=== PATIENT | female | born 1960 | race Caucasian/White ===

== ENCOUNTER 2018-08-11 09:28 | Outpatient (CLI) | payer BC, SELFPAY ==
[2018-08-11 09:56] LABS: HCT 41.7 % (36.0-46.0); HGB 13.6 g/dL (12.0-15.5); Mean Corp. HGB Concentration 32.6 g/dL (32.0-36.0); Mean Corpuscular Hemoglobin 31.5 pg (27.0-33.0); Mean Corpuscular Volume 96.5 fL (80-95); Mean Platelet Volume 11.1 fL (8.0-11.0); Platelet Count 189 x1000/uL (130-400); RBC 4.32 m/cumm (4.00-5.20); RBC Distribution Width 12.3 % (11.7-14.6); White Blood Cell Count 8.09 k/cumm (4.4-10.8)
[2018-08-11 11:16] LABS: Vitamin B12 259 pg/mL (193-986)
[2018-08-11 11:32] LABS: Folate > 20.0 ng/mL (8.6-20.0)
[2018-08-14 08:07] LABS: Thiamine (Vitamin B1), WB 160 nmol/L (70-180)
== END 2018-08-11 09:48 ==
PROVIDERS: PCP Family Medicine; Visit Provider Family Medicine
DX: E53.8 Deficiency of other specified B group vitamins (principal)
CPT/HCPCS: 36415; 85027; 82607; 82746; 84425

== ENCOUNTER 2019-09-11 01:29 | Outpatient (CLI) | payer BC, SELFPAY ==
--- NOTE | 2019-09-11 15:26 | DI.MAMMO_ITS ---
EXAM: MAMMO SCREENING CLINICAL HISTORY: SCREENING Z12.39 TECHNIQUE: Mammograms were interpreted according to the usual protocol including computer analysis w [employer] CAD system, tomosynthesis and C-view imaging. COMPARISON: Current examination is compared with previous examinations including August 2017 FINDINGS: Breasts are extremely dense. No dominant mass or clumped microcalcification is seen. Current examin ation is compared with previous examinations including August 2017 and there has been no gross inter daniele change in appearance in comparison with the previous studies. IMPRESSION: No specific evidence of malignancy at this time. Routine screening examinations are suggested at year ly intervals due to the family history of breast carcinoma. Category 1, breast density category D. BI-RADS Cat 1 - Negative Breast Density - Category D - Extremely dense
== END 2019-09-11 01:49 ==
PROVIDERS: PCP Family Medicine; Visit Provider Family Medicine
DX: Z12.31 Encounter for screening mammogram for malignant neoplasm of breast (principal); Z80.3 Family history of malignant neoplasm of breast
CPT/HCPCS: 77063; 77067

== ENCOUNTER 2019-09-22 13:29 | Outpatient (CLI) | payer BC, SELFPAY ==
[2019-09-22 15:46] LABS: ALT 24 U/L (14-59); AST 20 U/L (15-37); Albumin 4.5 g/dL (3.4-5.0); Alkaline Phosphatase 71 U/L (46-116); BUN 12 mg/dL (7-18); Bilirubin, Total 0.4 mg/dL (0.2-1.0); CREATININE 0.69 mg/dL (0.55-1.02); Calcium 8.7 mg/dL (8.5-10.1); Chloride 104 mmol/L (98-107); FREE T4 1.06 ng/dL (0.76-1.46); Glucose 99 mg/dL (74-106); Potassium 4.1 mmol/L (3.5-5.1); Sodium 142 mmol/L (136-145); TSH 1.95 uIU/mL (0.36-3.74); Total Protein 7.3 g/dL (6.4-8.2)
[2019-09-22 15:57] LABS: Calculated LDL 108 mg/dL (<100); Cholesterol 208 mg/dL (<200); HDL Cholesterol 89 mg/dL (40-60); Triglyceride 57 mg/dL (<150)
[2019-09-22 23:04] LABS: T3, Total 120 ng/dL (97-169)
[2019-09-29 11:01] LABS: 25-Hydroxy D Total 31 ng/mL; 25-Hydroxy D2 <4.0 ng/mL; 25-Hydroxy D3 31 ng/mL
== END 2019-09-22 13:49 ==
PROVIDERS: PCP Family Medicine; Visit Provider Naturopath
DX: E55.9 Vitamin D deficiency, unspecified (principal); I10 Essential (primary) hypertension
CPT/HCPCS: 36415; 80053; 80061; 82306; 84439; 84443; 84480

== ENCOUNTER 2019-11-27 14:20 | Outpatient (REF) | payer BC, SELFPAY ==
[2019-11-27 20:58] LABS: HCT 41.9 % (36.0-46.0); HGB 13.7 g/dL (12.0-15.5); Mean Corp. HGB Concentration 32.7 g/dL (32.0-36.0); Mean Corpuscular Hemoglobin 30.9 pg (27.0-33.0); Mean Corpuscular Volume 94.4 fL (80-95); Mean Platelet Volume 12.9 fL (8.0-11.0); Platelet Count 200 x1000/uL (130-400); RBC 4.44 m/cumm (4.00-5.20); RBC Distribution Width 12.6 % (11.7-14.6); White Blood Cell Count 6.18 k/cumm (4.4-10.8)
[2019-11-27 21:32] LABS: ALT 34 U/L (14-59); AST 30 U/L (15-37); Albumin 4.2 g/dL (3.4-5.0); Alkaline Phosphatase 71 U/L (46-116); Anion Gap 8.6 mmol/L (3-11); BUN 12 mg/dL (7-18); Bilirubin, Total 0.6 mg/dL (0.2-1.0); CO2 30.4 mmol/L (21.0-32.0); CREATININE 0.71 mg/dL (0.55-1.02); Calcium 8.9 mg/dL (8.5-10.1); Chloride 102 mmol/L (98-107); Glucose 94 mg/dL (74-106); Potassium 3.7 mmol/L (3.5-5.1); Sodium 141 mmol/L (136-145); Total Protein 7.1 g/dL (6.4-8.2)
[2019-11-27 21:48] LABS: ESR 9 mm/hr (0-30); Vitamin B12 > 2000 pg/mL (193-986)
== END 2019-11-27 14:40 ==
LOC: NCHCN 14:20
PROVIDERS: PCP Family Medicine; Visit Provider Family Medicine
DX: D64.9 Anemia, unspecified (principal); R53.83 Other fatigue; E53.8 Deficiency of other specified B group vitamins
CPT/HCPCS: 80053; 85027; 85652; 82607

== ENCOUNTER 2020-02-15 02:13 | Outpatient (CLI) | payer BC, SELFPAY ==
[2020-02-15 12:26] LABS: Folate 16.5 ng/mL (8.6-20.0); Vitamin B12 845 pg/mL (193-986)
[2020-02-17 15:38] LABS: Pyridoxal 5-Phosphate (PLP), P 11 mcg/L (5-50)
[2020-02-19 11:29] LABS: Thiamine (Vitamin B1), WB 153 nmol/L (70-180)
[2020-02-19 22:43] LABS: Riboflavin (Vitamin B2), P 6 mcg/L (1-19)
[2020-02-22 14:40] LABS: Niacin (Vitamin B3), Plasma 2.66 ug/mL
[2020-02-23 16:04] LABS: Pantothenic Acid (VitB5), S 88.41 ug/L
== END 2020-02-15 02:33 ==
PROVIDERS: PCP Family Medicine; Visit Provider Family Medicine
DX: R53.83 Other fatigue (principal)
CPT/HCPCS: 36415; 84252; 84591; 82607; 82746; 84207; 84425

== ENCOUNTER 2020-02-29 21:51 | Outpatient (REF) | payer BC, SELFPAY ==
[2020-02-29 20:57] LABS: Hemoglobin A1C 5.4 % (3.8-5.6)
== END 2020-02-29 22:11 ==
LOC: NCHCN 21:51
PROVIDERS: PCP Family Medicine; Visit Provider Family Medicine
DX: K90.49 Malabsorption due to intolerance, not elsewhere classified (principal)
CPT/HCPCS: 83036

== ENCOUNTER 2020-04-15 03:02 | Outpatient (CLI) | payer BC, SELFPAY ==
[2020-04-15 14:08] LABS: Abs Immature Grans 0.02 10^3/uL (0.0-0.06); Absolute Basophil Count 0.03 10^3/uL (0.0-0.2); Absolute Eosinophil Count 0.03 10^3/uL (0.0-0.7); Absolute Lymphocyte Count 1.79 10^3/uL (1.2-3.4); Absolute Monocyte Count 0.52 10^3/uL (0.1-0.8); Absolute Neutrophil Count 5.44 10^3/uL (1.2-6.7); Basophils % 0.4; Eosinophils % 0.4; HCT 42.4 % (36.0-46.0); HGB 13.8 g/dL (11.2-15.7); Immature Grans % 0.3; Lymphocytes % 22.9; MCH 30.7 pg (27.0-33.0); MCHC 32.5 % (32.0-36.0); MCV 94.4 fL (80-95); MPV 12.2 fL (8.0-11.0); Monocytes % 6.6; Neutrophils % 69.4; Nucleated RBC 0 %; Platelet Count 219 10^3/uL (130-400); RBC 4.49 10^6/uL (3.93-5.22); RDW-SD 41.7 fL; WBC 7.83 10^3/uL (4.4-10.8)
[2020-04-15 14:44] LABS: Iron 92 ug/dL (50-170); Total Iron Binding Capacity 395 ug/dL (250-450); Transferrin Sat 23 % (15-50)
[2020-04-15 14:50] LABS: Hemoglobin A1C 5.3 % (<5.7)
[2020-04-15 14:55] LABS: ESR 16 mm/hr (0-30)
[2020-04-15 15:21] LABS: Creatine Kinase 185 U/L (26-192); FREE T4 0.97 ng/dL (0.76-1.46)
[2020-04-15 15:27] LABS: ALT 28 U/L (14-59); AST 19 U/L (15-37); Albumin 4.3 g/dL (3.4-5.0); Alkaline Phosphatase 70 U/L (46-116); Anion Gap 8.8 mmol/L (3-11); BUN 11 mg/dL (7-18); Bilirubin, Total 0.5 mg/dL (0.2-1.0); CO2 28.2 mmol/L (21.0-32.0); CREATININE 0.69 mg/dL (0.55-1.02); Calcium 8.8 mg/dL (8.5-10.1); Chloride 105 mmol/L (98-107); Ferritin 56 ng/mL (8-252); Folate 14.4 ng/mL (8.6-20.0); Glucose 92 mg/dL (74-106); Sodium 142 mmol/L (136-145); TSH 1.85 uIU/mL (0.36-3.74); Total Protein 7.4 g/dL (6.4-8.2); Vitamin B12 1631 pg/mL (193-986)
[2020-04-15 22:07] LABS: Rheumatoid Factor <8.6 IU/mL (<12.0)
[2020-04-15 22:24] LABS: T3,Free 3.6 pg/mL (2.8-5.3)
[2020-04-18 05:57] LABS: Vitamin D 25 Total 27.3 ng/ml (30-100)
[2020-04-18 11:51] LABS: Syphilis Serology (RPR) Negative (Negative)
[2020-04-18 14:12] LABS: HCV RNA Qualitative Undetected (Undetected)
[2020-04-18 14:43] LABS: ANA Interpretation Negative (Negative)
== END 2020-04-15 03:22 ==
PROVIDERS: PCP Family Medicine; Visit Provider Physical Medicine & Rehabilitation
DX: R53.83 Other fatigue (principal); E55.9 Vitamin D deficiency, unspecified; M79.10 Myalgia, unspecified site; G47.9 Sleep disorder, unspecified; M89.9 Disorder of bone, unspecified; E74.39 Other disorders of intestinal carbohydrate absorption
CPT/HCPCS: 36415; 80053; 82306; 82550; 85652; 87522; 82607; 82728; 82746; 83036; 83540; 83550; 83735; 84439; 84443; 84481; 85025; 86038; 86431; 86592

== ENCOUNTER 2021-04-25 17:45 | Outpatient (REF) | payer BC, SELFPAY ==
[2021-04-27 20:00] LABS: COVID-19 RT-PCR UVMMC Result Negative (Negative)
== END 2021-04-25 17:46 | disposition home or self-care (01) ==
LOC: NCHCN 17:45
PROVIDERS: PCP Family Medicine; Visit Provider Family Medicine
DX: Z20.822 Contact with and (suspected) exposure to COVID-19 (principal)
CPT/HCPCS: U0003

== ENCOUNTER 2021-08-14 02:50 | Outpatient (CLI) | payer BC, SELFPAY ==
[2021-08-14 14:21] LABS: Abs Immature Grans 0.03 10^3/uL (0.0-0.06); Absolute Basophil Count 0.03 10^3/uL (0.0-0.2); Absolute Eosinophil Count 0.06 10^3/uL (0.0-0.7); Absolute Lymphocyte Count 1.84 10^3/uL (1.2-3.4); Absolute Monocyte Count 0.47 10^3/uL (0.1-0.8); Absolute Neutrophil Count 5.77 10^3/uL (1.2-6.7); Basophils % 0.4; Eosinophils % 0.7; HCT 40.8 % (36.0-46.0); HGB 13.2 g/dL (11.2-15.7); Immature Grans % 0.4; Lymphocytes % 22.4; MCH 31.1 pg (27.0-33.0); MCHC 32.4 % (32.0-36.0); MCV 96.2 fL (80-95); MPV 10.7 fL (8.0-11.0); Monocytes % 5.7; Neutrophils % 70.4; Nucleated RBC 0 %; Platelet Count 253 10^3/uL (130-400); RBC 4.24 10^6/uL (3.93-5.22); RDW 12.4 % (11.7-14.6); RDW-SD 43.8 fL
[2021-08-14 15:18] LABS: ALT 30 U/L (14-59); AST 25 U/L (15-37); Albumin 3.7 g/dL (3.4-5.0); Alkaline Phosphatase 65 U/L (46-116); BUN 9 mg/dL (7-18); Bilirubin, Total 0.5 mg/dL (0.2-1.0); C-Reactive Protein 0.21 mg/dL (0.0-0.3); CREATININE 0.6 mg/dL (0.55-1.02); Calcium 8.7 mg/dL (8.5-10.1); Chloride 104 mmol/L (98-107); Glucose 110 mg/dL (74-106); Magnesium 2.2 mg/dL (1.8-2.4); Potassium 3.5 mmol/L (3.5-5.1); Sodium 144 mmol/L (136-145); Total Protein 6.5 g/dL (6.4-8.2); Vitamin B12 673 pg/mL (193-986)
[2021-08-16 11:32] LABS: Thiamine (Vitamin B1), WB 114 nmol/L (70-180)
== END 2021-08-14 02:51 | disposition home or self-care (01) ==
PROVIDERS: PCP Family Medicine; Visit Provider Family Medicine
DX: I10 Essential (primary) hypertension (principal); D64.9 Anemia, unspecified; R73.03 Prediabetes; E53.8 Deficiency of other specified B group vitamins
CPT/HCPCS: 36415; 80053; 82306; 82607; 83735; 84425; 84443; 85025; 86140

== ENCOUNTER 2021-10-16 16:52 | Outpatient (REF) | payer BC, SELFPAY ==
[2021-10-17 09:30] LABS: Abs Immature Grans 0.03 10^3/uL (0.0-0.06); Absolute Basophil Count 0.02 10^3/uL (0.0-0.2); Absolute Eosinophil Count 0.04 10^3/uL (0.0-0.7); Absolute Monocyte Count 0.66 10^3/uL (0.1-0.8); Absolute Neutrophil Count 9.12 10^3/uL (1.2-6.7); Basophils % 0.2; Eosinophils % 0.3; HCT 43.9 % (36.0-46.0); Immature Grans % 0.3; Lymphocytes % 17.5; MCH 30.8 pg (27.0-33.0); MCHC 31.9 % (32.0-36.0); MCV 96.7 fL (80-95); MPV 12.5 fL (8.0-11.0); Monocytes % 5.5; Neutrophils % 76.2; Nucleated RBC 0 %; Platelet Count 246 10^3/uL (130-400); RBC 4.54 10^6/uL (3.93-5.22); RDW 12.7 % (11.7-14.6); WBC 11.97 10^3/uL (4.4-10.8)
[2021-10-17 09:31] LABS: Absolute Lymphocyte Count 2.09 10^3/uL (1.2-3.4)
[2021-10-17 09:33] LABS: ESR 10 mm/hr (0-30)
== END 2021-10-16 16:53 | disposition home or self-care (01) ==
LOC: NCHCN 16:52
PROVIDERS: PCP Family Medicine; Visit Provider Family Medicine
DX: D64.9 Anemia, unspecified (principal); A69.20 Lyme disease, unspecified
CPT/HCPCS: 85652; 85025

== ENCOUNTER 2021-12-06 19:34 | Outpatient (REF) | payer BC, SELFPAY ==
[2021-12-06 20:38] LABS: Abs Immature Grans 0.02 10^3/uL (0.0-0.06); Absolute Basophil Count 0.03 10^3/uL (0.0-0.2); Absolute Eosinophil Count 0.06 10^3/uL (0.0-0.7); Absolute Lymphocyte Count 1.99 10^3/uL (1.2-3.4); Absolute Neutrophil Count 5.28 10^3/uL (1.2-6.7); Basophils % 0.4; Eosinophils % 0.8; HCT 42.9 % (36.0-46.0); Immature Grans % 0.3; Lymphocytes % 25.3; MCH 30.6 pg (27.0-33.0); MCHC 32.6 % (32.0-36.0); MCV 93.9 fL (80-95); MPV 11.4 fL (8.0-11.0); Monocytes % 6.3; Neutrophils % 66.9; Platelet Count 239 10^3/uL (130-400); RBC 4.57 10^6/uL (3.93-5.22); RDW 12.3 % (11.7-14.6); RDW-SD 42.5 fL; WBC 7.88 10^3/uL (4.4-10.8)
== END 2021-12-06 19:35 | disposition home or self-care (01) ==
LOC: NCHCN 19:34
PROVIDERS: PCP Family Medicine; Visit Provider Family Medicine
DX: R10.9 Unspecified abdominal pain (principal)
CPT/HCPCS: 85025

== ENCOUNTER 2021-12-12 00:35 | Outpatient (CLI) | payer BC, SELFPAY ==
--- NOTE | 2021-12-12 10:00 | DI.MAMMO_ITS ---
Exam(s) MAMMO SCREENING EXAM: MAMMO SCREENING CLINICAL HISTORY: SCREENING, Z12.39. TECHNIQUE: Bilateral full field digital CC and MLO mammographic images were obtained with 3D tomosyn thesis and utilizing computer aided detection (CAD). COMPARISON: Prior mammograms were reviewed, the most recent being August 2019. FINDINGS: The fibroglandular tissue pattern is again noted extremely dense. There are no CAD designations. There are no obvious new spiculated masses nor malignant appearing microcalcification groups. There is no significant architectural distortion nor skin thickening-retraction. IMPRESSION: No radiographic evidence of malignancy. Very dense bilateral fibroglandular tissue BI-RADS Category 1 - Negative Breast Density - Category D - Extremely dense Breast density Category C or D implies that the patient has dense breast tissue. Dense breast tissue can make it harder to find cancer on a mammogram. Dense breast tissue is also associated with an incr eased risk of breast cancer. This information about the result of the mammogram report was provided to the patient to raise their awareness. Use this report when you speak with the patient about their risks for breast cancer, which includes their family history. At that time, you may recommend additional screening tests (Ultrasoun d or MRI) as these tests may add significant information. A negative radiographic report should not delay biopsy if a dominant or clinically suspicious mass is present. Up to ten percent of cancers are not identified on mammography. A negative report may reinforce clinical impression. Adenosis and dense breasts may obscure an underlying neoplasm. False positive reports average 6 to 10%. Patient will receive a letter notifying them of these results.
== END 2021-12-12 00:55 ==
PROVIDERS: PCP Family Medicine; Visit Provider Family Medicine
DX: Z12.31 Encounter for screening mammogram for malignant neoplasm of breast (principal)
CPT/HCPCS: 77063; 77067

== ENCOUNTER 2022-04-27 18:47 | Outpatient (REF) | payer BC, SELFPAY ==
[2022-04-30 11:30] LABS: Lyme Ab w Rflx to Lyme Confirm Negative (Negative)
[2022-05-01 20:07] LABS: Anaplasma phagocytophilum Negative (Negative); B. miyamotoi PCR Negative (Negative); Babesia divergens/MO-1 Negative (Negative); Babesia duncani Negative (Negative); Babesia microti Negative (Negative); Ehrlichia chaffeensis Negative (Negative); Ehrlichia ewingii/canis Negative (Negative); Ehrlichia muris eauclairensis Negative (Negative)
== END 2022-04-27 18:48 | disposition home or self-care (01) ==
LOC: NCHCN 18:47
PROVIDERS: PCP Family Medicine; Visit Provider Family Medicine
DX: Z86.19 Personal history of other infectious and parasitic diseases (principal)
CPT/HCPCS: 87798; 86618

== ENCOUNTER 2022-11-11 08:24 | Outpatient (REF) | payer BC, SELFPAY ==
[2022-11-14 18:37] LABS: Calprotectin 88.2 mcg/g
== END 2022-11-11 08:25 | disposition home or self-care (01) ==
LOC: LBN 08:24
PROVIDERS: PCP Family Medicine; Visit Provider Physician Assistant Medical
DX: R19.4 Change in bowel habit (principal)
CPT/HCPCS: 83993

== ENCOUNTER 2023-05-29 13:18 | Outpatient (REF) | payer BC, SELFPAY ==
[2023-05-29 21:07] LABS: Abs Immature Grans 0.02 10^3/uL (0.0-0.06); Absolute Basophil Count 0.04 10^3/uL (0.0-0.2); Absolute Eosinophil Count 0.05 10^3/uL (0.0-0.7); Absolute Neutrophil Count 6.03 10^3/uL (1.2-6.7); Basophils % 0.4; Eosinophils % 0.5; HCT 46.8 % (36.0-46.0); HGB 15.1 g/dL (11.2-15.7); Immature Grans % 0.2; Lymphocytes % 27.4; MCH 30.5 pg (27.0-33.0); MCHC 32.3 % (32.0-36.0); MCV 95 fL (80-95); MPV 11.7 fL (8.0-11.0); Monocytes % 5.5; Platelet Count 280 10^3/uL (130-400); RBC 4.95 10^6/uL (3.93-5.22); RDW-SD 41.7 fL; WBC 9.14 10^3/uL (4.4-10.8)
[2023-05-29 21:25] LABS: ALT 26 U/L (14-59); AST 20 U/L (15-37); Albumin 4.2 g/dL (3.4-5.0); Alkaline Phosphatase 90 U/L (46-116); Anion Gap 8.7 mmol/L (3-11); BUN 11 mg/dL (7-18); Bilirubin, Total 0.5 mg/dL (0.2-1.0); CO2 27.3 mmol/L (21.0-32.0); CREATININE 0.6 mg/dL (0.55-1.02); Calcium 9.4 mg/dL (8.5-10.1); Chloride 104 mmol/L (98-107); Estimated GFR 100.17 (mL/min/1.73m2); Glucose 115 mg/dL (74-106); Potassium 4.6 mmol/L (3.5-5.1); Sodium 140 mmol/L (136-145); TSH (W/Ref FT4) 2.58 uIU/mL (0.36-3.74); Total Protein 7.5 g/dL (6.4-8.2)
== END 2023-05-29 13:19 | disposition home or self-care (01) ==
LOC: NCHCN 13:18
PROVIDERS: PCP Family Medicine; Visit Provider Family Medicine
DX: R53.83 Other fatigue (principal)
CPT/HCPCS: 80053; 84443; 85025

== ENCOUNTER 2023-07-16 18:22 | Outpatient (REF) | payer MEDICARE, SELFPAY ==
[2023-07-16 20:50] LABS: ALT 27 U/L (14-59); AST 24 U/L (15-37); Albumin 3.8 g/dL (3.4-5.0); Alkaline Phosphatase 60 U/L (46-116); Anion Gap 7.1 mmol/L (3-11); BUN 9 mg/dL (7-18); Bilirubin, Total 0.5 mg/dL (0.2-1.0); CO2 27.9 mmol/L (21.0-32.0); CREATININE 0.7 mg/dL (0.55-1.02); Calcium 8.8 mg/dL (8.5-10.1); Chloride 108 mmol/L (98-107); Estimated GFR 96.52 (mL/min/1.73m2); Glucose 96 mg/dL (74-106); Magnesium 2.1 mg/dL (1.8-2.4); Potassium 3.9 mmol/L (3.5-5.1); Sodium 143 mmol/L (136-145)
== END 2023-07-16 18:23 | disposition home or self-care (01) ==
LOC: NCHCN 18:22
PROVIDERS: PCP Family Medicine; Visit Provider Family Medicine
DX: I10 Essential (primary) hypertension (principal)
CPT/HCPCS: 80053; 83735

== ENCOUNTER 2023-10-24 14:29 | Outpatient (REF) | payer MEDICARE, SELFPAY ==
[2023-10-24 16:55] LABS: Vitamin D 25 Total 6.2 ng/mL (30-100)
[2023-10-24 16:58] LABS: HCT 43.6 % (36.0-46.0); HGB 14.4 g/dL (11.2-15.7); MCH 31.3 pg (27.0-33.0); MCV 95 fL (80-95); MPV 12.4 fL (8.0-11.0); Platelet Count 232 10^3/uL (130-400); RDW 12.2 % (11.7-14.6); RDW-SD 42.3 fL; WBC 5.91 10^3/uL (4.4-10.8)
[2023-10-24 17:13] LABS: ALT 27 U/L (14-59); AST 20 U/L (15-37); Alkaline Phosphatase 76 U/L (46-116); Anion Gap 11.5 mmol/L (3-11); BUN 12 mg/dL (7-18); Bilirubin, Total 0.5 mg/dL (0.2-1.0); CO2 26.5 mmol/L (21.0-32.0); CREATININE 0.6 mg/dL (0.55-1.02); Calcium 8.8 mg/dL (8.5-10.1); Calculated LDL 125 mg/dL (<100); Chloride 104 mmol/L (98-107); Cholesterol 213 mg/dL (<200); Estimated GFR 99.55 (mL/min/1.73m2); Glucose 111 mg/dL (74-106); HDL Cholesterol 78 mg/dL (40-60); Magnesium 2.1 mg/dL (1.8-2.4); Potassium 4.4 mmol/L (3.5-5.1); Sodium 142 mmol/L (136-145); Triglyceride 52 mg/dL (<150)
[2023-10-24 17:18] LABS: GGT 28 U/L (5-55)
[2023-10-24 21:57] LABS: CRP, High Sensitivity <0.34 mg/L (See Note)
== END 2023-10-24 14:30 | disposition home or self-care (01) ==
LOC: NCHCN 14:29
PROVIDERS: PCP Family Medicine; Visit Provider Family Medicine
DX: I10 Essential (primary) hypertension (principal); F10.10 Alcohol abuse, uncomplicated; M85.80 Other specified disorders of bone density and structure, unspecified site
CPT/HCPCS: 80053; 80061; 82306; 85027; 86141; 82977; 83735

== ENCOUNTER 2023-11-14 12:05 | Outpatient (REF) | payer MEDICARE, SELFPAY ==
--- NOTE | 2023-11-14 11:15 | SKI_PTH ---
PATIENT: Krystina Peter LOC: [facility] U#:[id number] AGE/SX: 63/F ROOM: RE11/14/[address]: Kristen Vazquez : 1960 BED: DIS: 11/14/2023 SPEC #: [id number] RECD: 11/14/23 17:33 STATUS: TAMMI REAdamaris #: [id number] SUNNY: 11/14/23 11:[address]: Kristen Vazquez DEPT: Surgical Specimen RECD BY: Saadai Hernandez ENTERED: 11/14/23 17:34 SP TYPE: ERICH MICHELLE DR: Jennyfer Dave Tissues: 1 - SKIN BIOPSY(SHAVE/PUNCH) Procedures: SKIN LEVEL 4 Comments: [id number]
== END 2023-11-14 12:06 | disposition home or self-care (01) ==
LOC: LBN 12:05
PROVIDERS: PCP Family Medicine; Visit Provider Registered Nurse Maternal Newborn
DX: L82.1 Other seborrheic keratosis
CPT/HCPCS: 88305

== ENCOUNTER → 2023-12-16 01:39 | Outpatient (CLI) | payer MEDICARE, SELFPAY ==
--- NOTE | 2023-12-16 15:18 | DI.MAMMO_ITS ---
Exam(s) MAMMO SCREENING EXAM: MAMMO SCREENING CLINICAL HISTORY: Z12.31 Encounter for screening mammogram for malignant neoplasm of breast. TECHNIQUE: Bilateral full field digital CC and MLO mammographic images were obtained with 3D tomosyn thesis and utilizing computer aided detection (CAD). COMPARISON: 2014 through 2021 FINDINGS: Masses: None seen in the left breast. Asymmetric areas of nodularity noted in the superior right matti ast on the MLO view posteriorly. Spot compression views and ultrasound are requested for further kailash luation. Architectural Distortion: None seen in either breast. Microcalcifications: No suspicious pleomorphic-type are seen in either breast. Skin Thickening/Nipple Retraction: None. IMPRESSION: 1. Left breast: No significant interval change with no specific features of malignancy noted. 2. Right breast: Areas of asymmetric nodularity seen in the superior right breast. Spot compression v iews and ultrasound requested for further evaluation. BI-RADS Category 0 - Assessment Incomplete: Need additional imaging evaluation Breast Density - Category D - extremely dense Breast Density Category D: The mammogram demonstrates the patient's breast tissue is dense. Dense matti ast tissue is very common and is not abnormal but dense breast tissue can make it harder to find canc er on a mammogram. Also, dense breast tissue may increase their breast cancer risk. This information about the result of the mammogram report was provided to the patient to raise their awareness. Use th is report when you speak with the patient about their risks for breast cancer, which includes their f amily history. At that time, you may recommend for more screening tests (Ultrasound or MRI) as they m ight be useful based on their risk. A negative radiographic report should not delay biopsy if a dominant or clinically suspicious mass is present. Up to ten percent of cancers are not identified on mammography. A negative report may reinforce clinical impression. Adenosis and dense breasts may obscure an underlying neoplasm. False positive reports average 6 to 10%.
== END ==
PROVIDERS: PCP Family Medicine; Visit Provider Family Medicine
DX: Z12.31 Encounter for screening mammogram for malignant neoplasm of breast (principal); R92.8 Other abnormal and inconclusive findings on diagnostic imaging of breast
CPT/HCPCS: 77063; 77067

== ENCOUNTER → 2023-12-18 02:20 | Outpatient (CLI) | payer MEDICARE, SELFPAY ==
--- NOTE | 2023-12-18 | DI.MAMMO_ITS ---
Exam(s) MG MAMMO SCREEN CALL BACK UNI US BREAST RT LIMITED EXAM: MG MAMMO SCREEN CALL BACK UNI CLINICAL HISTORY: R92.8 FU RT breast mammo, asymmetric nodularity. TECHNIQUE: Craniocaudal and mediolateral oblique spot compression digital Mammography views of the breast followed by Tomosynthesis and breast ultrasound. COMPARISON: MG Screening Bilat Mammo from 04/20/2015 MG Screening Bilat Mammo from 09/06/2017 MG MG MAMMO SCREENING from 09/11/2019 MG MG MAMMO SCREENING from 12/12/2021 MG MG MAMMO SCREENING from 12/16/2023 FINDINGS: Mammography/Tomosynthesis: Masses/Architectural Distortion: None seen. Microcalcifictions: No suspicious pleomorphic-type are seen. Skin Thickening/Nipple Retraction: None. Right breast US: Echotexture: Normal appearance of the glandular tissue. Shadowing: No suspicious foci. Cyst: None. Solid lesions: None seen. Ductal dilation: None. IMPRESSION: 1. No evidence of malignancy is noted. 2. Unless there is more urgent need, follow-up screening mammography is recommended, as per [place] [employer] guidelines. 3. The findings were discussed with the patient on the date of the examination. BI-RADS Category 1 - Negative Breast Density - Category D - Extremely dense A mammogram that demonstrates density of C or D indicates the patient's breast tissue is dense. Dense breast tissue is very common and is not abnormal, but dense breast tissue can make it harder to find cancer on a mammogram. Also, dense breast tissue may increase their breast cancer risk. This informa tion about the result of the mammogram report was provided to the patient to raise their awareness. U se this report when you speak with the patient about their risks for breast cancer, which includes th eir family history. At that time, you may recommend for more screening tests (Ultrasound or MRI) as t hey might be useful based on their risk. A negative radiographic report should not delay biopsy if a dominant or clinically suspicious mass is present. Up to ten percent of cancers are not identified on mammography. A negative report may reinforce clinical impression. Adenosis and dense breasts may obscure an underlying neoplasm. False positive reports average 6 to 10%. Patient will receive a letter notifying them of these results.
== END ==
PROVIDERS: PCP Family Medicine; Visit Provider Family Medicine
DX: R92.8 Other abnormal and inconclusive findings on diagnostic imaging of breast (principal); Z12.31 Encounter for screening mammogram for malignant neoplasm of breast
CPT/HCPCS: 76642; 77063; 77067

== ENCOUNTER 2024-01-15 09:22 | Outpatient (REF) | payer MEDICARE, SELFPAY ==
--- NOTE | 2024-01-15 08:30 | SKI_PTH ---
PATIENT: Krystina Peter LOC: [facility] U#:[id number] AGE/SX: 63/F ROOM: RE01/15/[address]: Srinath Dominguez MD : 1960 BED: DIS: 01/15/2024 SPEC #: [id number] RECD: 01/15/24 17:43 STATUS: TAMMI REQ #: [id number] SUNNY: 01/15/24 08:[address]: Srinath Dominguez DEPT: Surgical Specimen RECD BY: Saadia Hernandez ENTERED: 01/15/24 17:44 SP TYPE: ERICH MICHELLE DR: Jennyfer Dave Tissues: 1 - SKIN BIOPSY(SHAVE/PUNCH) Procedures: SKIN LEVEL 4 Comments: [id number]
== END 2024-01-15 09:23 | disposition home or self-care (01) ==
LOC: LBN 09:22
PROVIDERS: PCP Family Medicine; Visit Provider Otolaryngology
DX: L98.9 Disorder of the skin and subcutaneous tissue, unspecified (principal); L82.0 Inflamed seborrheic keratosis
CPT/HCPCS: 88305

== ENCOUNTER 2024-04-28 02:40 | Outpatient (CLI) | payer MEDICARE, SELFPAY ==
[2024-04-28 13:08] LABS: HCT 42.4 % (36.0-46.0); HGB 14.2 g/dL (11.2-15.7); MCH 31.4 pg (27.0-33.0); MCHC 33.5 % (32.0-36.0); MCV 94 fL (80-95); MPV 10.7 fL (8.0-11.0); Platelet Count 238 10^3/uL (130-400); RBC 4.52 10^6/uL (3.93-5.22); RDW 12.1 % (11.7-14.6); RDW-SD 42.1 fL; WBC 8.04 10^3/uL (4.4-10.8)
[2024-04-28 14:46] LABS: ALT 23 U/L (14-59); AST 21 U/L (15-37); Albumin 3.9 g/dL (3.4-5.0); Alkaline Phosphatase 68 U/L (46-116); Anion Gap 6.8 mmol/L (3-11); BUN 11 mg/dL (7-18); Bilirubin, Total 0.43 mg/dL (0.2-1.0); CO2 29.2 mmol/L (21.0-32.0); CREATININE 0.7 mg/dL (0.55-1.02); Calcium 9.4 mg/dL (8.5-10.1); Chloride 106 mmol/L (98-107); Estimated GFR 95.92 (mL/min/1.73m2); Glucose 130 mg/dL (74-106); Potassium 4.1 mmol/L (3.5-5.1); Sodium 142 mmol/L (136-145); TSH 4.28 uIU/Ml (0.36-3.74); Total Protein 7.2 g/dL (6.4-8.2)
[2024-04-28 15:22] LABS: Vitamin B12 255 pg/mL (193-986)
[2024-05-01 23:42] LABS: Thiamine (Vitamin B1), WB 142 nmol/L (70-180)
== END 2024-04-28 02:41 | disposition home or self-care (01) ==
LOC: LBO 02:40
PROVIDERS: PCP Family Medicine; Visit Provider Family Medicine
DX: R53.83 Other fatigue (principal); E53.9 Vitamin B deficiency, unspecified
CPT/HCPCS: 36415; 80053; 85027; 82607; 84425; 84443

== ENCOUNTER 2024-06-11 10:18 | Outpatient (REF) | payer MEDICARE, SELFPAY ==
[2024-06-11 16:24] LABS: FREE T4 0.78 ng/dL (0.76-1.46)
[2024-06-11 21:57] LABS: T3,Free 3.9 pg/mL (2.8-5.3)
== END 2024-06-11 10:19 | disposition home or self-care (01) ==
LOC: NCHCN 10:18
PROVIDERS: PCP Family Medicine; Visit Provider Family Medicine
DX: R53.83 Other fatigue (principal)
CPT/HCPCS: 84439; 84481

== ENCOUNTER 2024-12-14 14:07 | Outpatient (REF) | payer MEDICARE, SELFPAY ==
[2024-12-14 21:58] LABS: HCT 43.4 % (36.0-46.0); HGB 14.4 g/dL (11.2-15.7); MCH 31.5 pg (27.0-33.0); MCHC 33.2 % (32.0-36.0); MCV 95 fL (80-95); MPV 11.1 fL (8.0-11.0); Platelet Count 269 10^3/uL (130-400); RBC 4.57 10^6/uL (3.93-5.22); RDW-SD 41.4 fL; WBC 8.27 10^3/uL (4.4-10.8)
[2024-12-14 23:30] LABS: TSH 4.04 uIU/mL (0.36-3.74); Vitamin B12 232 pg/mL (193-986)
[2024-12-14 23:47] LABS: FREE T4 0.79 ng/dL (0.76-1.46)
[2024-12-15 23:10] LABS: CRP, High Sensitivity 0.35 mg/L (See Note); Rheumatoid Factor <8.6 IU/mL (<12.0)
== END 2024-12-14 14:08 | disposition home or self-care (01) ==
LOC: NCHCN 14:07
PROVIDERS: PCP Family Medicine; Visit Provider Family Medicine
DX: Z00.00 Encounter for general adult medical examination without abnormal findings (principal); I10 Essential (primary) hypertension
CPT/HCPCS: 85027; 86141; 82607; 84439; 84443; 86431

== ENCOUNTER 2025-01-26 17:38 | Outpatient (REF) | payer MEDICARE, SELFPAY ==
[2025-01-26 21:37] LABS: FREE T4 0.88 ng/dL (0.76-1.46); TSH 5.58 uIU/mL (0.36-3.74)
== END 2025-01-26 17:39 | disposition home or self-care (01) ==
LOC: NCHCN 17:38
PROVIDERS: PCP Family Medicine; Visit Provider Family Medicine
DX: E03.8 Other specified hypothyroidism (principal)
CPT/HCPCS: 84439; 84443

== ENCOUNTER 2025-03-10 11:42 | Outpatient (REF) | payer MEDICARE, SELFPAY ==
[2025-03-10 15:04] LABS: TSH 2.71 uIU/mL (0.36-3.74)
[2025-03-10 22:10] LABS: T3, Total 112 ng/dL (97-169)
== END 2025-03-10 11:43 | disposition home or self-care (01) ==
LOC: NCHCN 11:42
PROVIDERS: PCP Family Medicine; Visit Provider Family Medicine
DX: E03.9 Hypothyroidism, unspecified (principal)
CPT/HCPCS: 84439; 84443; 84480

== ENCOUNTER 2025-05-24 02:25 | Outpatient (CLI) | payer MEDICARE, SELFPAY ==
--- NOTE | 2025-05-24 12:45 | DI.US_ITS ---
Exam(s) US SOFT TISSUE EXTREMITY EXAM: US SOFT TISSUE EXTREMITY CLINICAL HISTORY: OTHER BURSAL CYST, LEFT HIP M71.352. TECHNIQUE: Ultrasound was performed using standard protocol. COMPARISON: No exams were available for comparison FINDINGS: Sonographic assessment utilizing grayscale and color Doppler imaging was performed and targeted to the area of clinical concern. The area of concern at the left hip corresponds to a 1.3 x 0.3 x 1 centimeter fluid collection. There is some mild surrounding edema in the fat. IMPRESSION: Small fluid collection. DATA REPOSITORY:
== END 2025-05-24 02:45 ==
PROVIDERS: PCP Family Medicine; Visit Provider Family Medicine
DX: M71.352 Other bursal cyst, left hip (principal)
CPT/HCPCS: 76881